=== PATIENT | male | born 1955 | race Asian ===

== ENCOUNTER 2018-04-13 21:50 | Emergency (ER) | payer OTHER ==
--- NOTE | 2018-04-13 21:53 | PDOC ---
Rapid Medical Evaluation Time Seen by Provider: 04/13/18 21:52 Medical Evaluation: Allergies Allergy/AdvReac Type Severity Reaction Status Date / Time No Known Allergies Allergy Verified 03/16/14 12:31 04/13/18 21:52 I have performed a brief in-person evaluation of this patient. The patient presents with a chief complaint of: fever, chills, dysuria s/p catheter placement Pertinent physical exam findings: abd SNTND I have ordered the following: urine The patient will proceed to the ED for further evaluation. Discharge Disposition - Diagnosis Dysuria - Referrals Referrals: Paty Yepez MD [Primary Care Provider] - - Patient Instructions - Post Discharge Activity
[2018-04-13 22:07] VITALS: BP 151/88; PULSE 110; BMI 26.3
[2018-04-13 22:20] LABS: URINE APPEARANCE SLCLOUDY; URINE BILIRUBIN NEGATIVE (<2.0 mg/dL); URINE COLOR STRAW; URINE GLUCOSE (UA) NEGATIVE (NEGATIVE); URINE KETONE NEGATIVE (NEGATIVE); URINE NITRITE NEGATIVE (NEGATIVE); URINE PROTEIN NEGATIVE (NEGATIVE); URINE UROBILINOGEN NEGATIVE mg/dL (0.2-1.0)
[2018-04-13 22:24] LABS: URINE LEUK ESTERASE 1+ (NEGATIVE)
[2018-04-13 22:27] LABS: URINE MUCUS RARE
--- NOTE | 2018-04-13 22:45 | PDOC ---
History of Present Illness - General Chief Complaint: Urinary Problem Stated Complaint: URINARY PROBLEM,FEVER Time Seen by Provider: 04/13/18 21:52 History Source: Patient Exam Limitations: No Limitations - History of Present Illness Initial Comments: This is a 62 YOM with h/o recent cystoscopy (6 days ago), BPH, renal stones, hernia repair, HTN, HLD, and lower GI bleed (2013) who p/w dysuria, urinary retention, subjective fever, chills, headache, and head-to-toe body aches worsening for the past three days. He describes the dysuria as burning urethra and sharp pain just above the pubic bone, both only present when he urinates, and he feels that he is unable to completely empty his bladder which is a new symptom for him. He additionally notes mild generalized headache for which he has taken Tylenol three times with short-lived relief. He has never had a UTI before. He denies any strange colors or smells to the urine, any blood or clots in the urine, any neck pain, dizziness, lightheadedness, chest pain, shortness of breath, additional abdominal pain, or any other symptoms lately. He has a prostate procedure scheduled for tomorrow. Past History - Past Medical History Allergies/Adverse Reactions: Allergies Allergy/AdvReac Type Severity Reaction Status Date / Time No Known Allergies Allergy Verified 03/16/14 12:31 Home Medications: Ambulatory Orders Atorvastatin Ca [Lipitor] 10 mg PO HS 03/16/14 Lisinopril [Prinivil] 10 mg PO DAILY 03/16/14 Metoprolol Tartrate [Lopressor -] 50 mg PO DAILY 03/16/14 Levofloxacin [Levaquin] 750 mg PO DAILY #4 tablet 04/14/18 COPD: No HTN: Yes Hypercholesterolemia: Yes Kidney Stones: Yes (H/O) Other medical history: enlarged prostate - Surgical History Abdominal Surgery: Yes (HERNIA REPAIR) - Suicide/Smoking/Psychosocial Hx Smoking History: Never smoked Review of Systems - Review of Systems Able to Perform ROS?: Yes Constitutional: Yes: Chills, Fever. No: Unexplained wgt Loss HEENTM: No: Nose Congestion, Throat Pain Respiratory: No: Cough, Shortness of Breath Cardiac (ROS): No: Chest Pain, Palpitations ABD/GI: No: Constipated, Diarrhea, Nausea, Vomiting : Yes: Burning, Dysuria, Other (retention) Musculoskeletal: No: Back Pain, Neck Pain Integumentary: No: Bruising, Rash Neurological: No: Headache, Numbness, Tingling, Weakness, Dizziness Endocrine: No: Unexplained Weight Gain, Unexplained Weight Loss *Physical Exam - Vital Signs Last Vital Signs Temp Pulse Resp BP Pulse Ox 99.6 F 110 H 18 151/88 99 04/13/18 22:04 04/13/18 22:04 04/13/18 22:04 04/13/18 22:04 04/13/18 22:04 - Physical Exam General Appearance: Yes: Nourished, Appropriately Dressed, Other (nontoxic and well appearing adult male, answering questions appropriately, accompanied by at bedside). No: Apparent Distress HEENT: positive: EOMI, EMMANUEL, Normal Voice, Hearing Grossly Normal. negative: Scleral Icterus (R), Scleral Icterus (L), Nasal Congestion Neck: positive: Trachea midline, Supple. negative: Tender, Rigid Respiratory/Chest: positive: Lungs Clear, Normal Breath Sounds. negative: Respiratory Distress, Crackles, Rhonchi, Stridor, Wheezing Cardiovascular: positive: Regular Rhythm, S1, S2, Tachycardia. negative: Edema , JVD, Murmur Gastrointestinal/Abdominal: positive: Normal Bowel Sounds, Flat, Soft. negative : Tender, Organomegaly, Pulsatile Mass, Protuberent, Distended, Guarding Male Genitalia: positive: normal genitalia. negative: discharge Musculoskeletal: positive: Normal Inspection. negative: Decreased Range of Motion, Vertebral Tenderness Extremity: positive: Normal Capillary Refill, Normal Inspection, Normal Range of Motion. negative: Tender, Cyanosis Integumentary: positive: Normal Color, Dry, Warm. negative: Erythema, Rash, Bruising Neurologic: positive: fryer operator II-XII NML intact (grossly), Fully Oriented, Alert, Normal Mood/Affect, Normal Response, Motor Strength /5 ED Treatment Course - LABORATORY CBC & Chemistry Diagram: 04/13/18 23:45 04/13/18 23:45 - ADDITIONAL ORDERS Additional order review: Laboratory Results 04/13/18 22:12 Urine Color Straw Urine Appearance Slcloudy Urine pH 6.0 Ur Specific [place] 1.003 Urine Protein Negative Urine Glucose (UA) Negative Urine Ketones Negative Urine Blood 1+ H Urine Nitrite Negative Urine Bilirubin Negative Urine Urobilinogen Negative Ur Leukocyte Esterase 1+ H Urine WBC (Auto) 18 Urine RBC (Auto) <1 Urine Mucus Rare Medical Decision Making - Medical Decision Making Adult male patient p/w burning on urination, urinary retention, headache, head- to-toe body aches, and subjective fever. Recent cystoscopy 6 days ago, known BPH with procedure scheduled tomorrow. Initial Vital Signs Temp Pulse Resp BP Pulse Ox 99.6 F 110 H 18 151/88 99 04/13/18 22:04 04/13/18 22:04 04/13/18 22:04 04/13/18 22:04 04/13/18 22:04 Exam: well appearing, nontoxic, not warm to the touch, heart and lung exam normal, abdominal exam benign, no CVA tenderness, exam normal. DDX IBNLT: UTI/pyelonephritis, urethritis, prostatitis, epididymitis, orchitis, hernia, testicular torsion, cellulitis, [place] gangrene, abscess (scrotal, perirectal, folliculitis, etc), spermatocele/hydrocele/hematocele, referred pain (i.e. renal colic, appendicitis, etc), malignancy, contact dermatitis, musculoskeletal, etc. W/U ordered: UA UCx CBCD CMP Lactate BCx TX ordered: IVF Laboratory Tests 04/13/18 04/13/18 04/13/18 22:12 23:45 23:45 WBC 13.1 H D RBC 4.75 Hgb 14.1 Hct 42.3 MCV 89.0 MCH 29.8 MCHC 33.4 RDW 13.8 Plt Count 276 MPV 8.2 Neutrophils % 76.4 D Lymphocytes % 14.7 D Monocytes % 8.1 Eosinophils % 0.4 Basophils % 0.4 Sodium 138 Potassium 4.0 Chloride 102 Carbon Dioxide 28 Anion Gap 8 BUN 11 D Creatinine 1.0 D Creat Clearance w eGFR > 60 Random Glucose 133 H Lactic Acid Calcium 8.5 Total Bilirubin 0.4 D AST 15 ALT 24 Alkaline Phosphatase 78 Total Protein 6.8 Albumin 3.6 Urine Color Straw Urine Appearance Slcloudy Urine pH 6.0 Ur Specific [place] 1.003 Urine Protein Negative Urine Glucose (UA) Negative Urine Ketones Negative Urine Blood 1+ H Urine Nitrite Negative Urine Bilirubin Negative Urine Urobilinogen Negative Ur Leukocyte Esterase 1+ H Urine WBC (Auto) 18 Urine RBC (Auto) <1 Urine Mucus Rare 04/13/18 23:45 WBC RBC Hgb Hct MCV MCH MCHC RDW Plt Count MPV Neutrophils % Lymphocytes % Monocytes % Eosinophils % Basophils % Sodium Potassium Chloride Carbon Dioxide Anion Gap BUN Creatinine Creat Clearance w eGFR Random Glucose Lactic Acid 2.0 Calcium Total Bilirubin AST ALT Alkaline Phosphatase Total Protein Albumin Urine Color Urine Appearance Urine pH Ur Specific [place] Urine Protein Urine Glucose (UA) Urine Ketones Urine Blood Urine Nitrite Urine Bilirubin Urine Urobilinogen Ur Leukocyte Esterase Urine WBC (Auto) Urine RBC (Auto) Urine Mucus On reassessment: Patient states feels well, ready to go home, exam benign. Repeat VS: Patient given Levaquin for UTI here in the ED. Workup is not concerning for emergency-level pathology at this time. The patient is appropriate for discharge with close outpatient follow up. E-Rx sent for additional Levaquin to patient's pharmacy. They are comfortable with this plan and will follow up with their PCP in 1-3 days. Return precautions are discussed and they will come back to the ER if necessary. *DC/Admit/Observation/Transfer Diagnosis at time of Disposition: BPH (benign prostatic hyperplasia) Qualifiers: Lower urinary tract symptom presence: symptoms present Lower urinary tract symptom detail: unspecified Qualified Code(s): N40.1 - Benign prostatic hyperplasia with lower urinary tract symptoms UTI (urinary tract infection) Qualifiers: Urinary tract infection type: acute cystitis Hematuria presence: with hematuria Qualified Code(s): N30.01 - Acute cystitis with hematuria Headache Qualifiers: Headache type: unspecified Headache chronicity pattern: acute headache Intractability: not intractable Qualified Code(s): R51 - Headache - Discharge Dispostion Disposition: HOME Condition at time of disposition: Stable Decision to Admit order: No - Prescriptions Prescriptions: Levofloxacin [Levaquin] 750 mg PO DAILY #4 tablet - Referrals Referrals: Paty Yepez MD [Primary Care Provider] - - Patient Instructions Printed Discharge Instructions: DI for Urinary Tract Infection (UTI) Additional Instructions: You were seen in the ER for painful urination. We did blood and urine labs blood tests and you have a urinary tract infection, but there were no other abnormalities. We gave you the first dose of antibiotic here. After our assessment, we do not believe you are having a medical emergency at this time, and we believe you are safe to go home. 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 Please take over the counter pain medications for pain, following the instructions on the medication label. For painful urination, please take pyridium (Azo) which you can get [id number] at the pharmacy. This will turn your urine orange and it is nothing to worry about while you are taking this medication. Follow up with your urologist and your primary doctor in 1-3 days. Call their clinic [facility] , tell them you were seen in the ER, and tell them you need an appointment. Please come back to the ER at any time, 24 hours a day, for any new or worsening symptoms, like worsened pain, increased or foul-smelling discharge, fever, testicular/scrotal pain or swelling, or other symptoms. If you are having severe or life threatening symptoms, or symptoms that make it unsafe to drive or have someone drive you, please call 911. - Post Discharge Activity
--- NOTE | 2018-04-13 23:17 | PDOC ---
Attending Attestation - Resident Resident Name: Letha Pena - ED Attending Attestation I have performed the following: I have examined & evaluated the patient, The case was reviewed & discussed with the resident, I agree w/resident's findings & plan, Exceptions are as noted - HPI HPI: 04/13/18 23:16 62y M hx of htn, HL, BPH s/p cystoscopy 6 days ago, presenst with subjective fever x 3 days and dysuria and hesitancy x 1 day. Pt denies any associated cough , uri like symptoms, cp, sob, abd pain, n/v, diarrhea/melena. The patient notes he was given 2 green capsules of abx after his cystoscopy he is not sure of the medication (?possibly keflex). GENERAL: The patient is awake, alert, and fully oriented, Nontoxic - in no acute distress. HEAD: Normocephalic, atraumatic. EYES: extraocular movements intact, sclera anicteric, conjunctiva clear. ENT: Normal voice, Moist mucous membranes. NECK: Normal range of motion, supple LUNGS: Breath sounds equal, clear to auscultation bilaterally. No wheezes, no rhonchi, no rales. HEART: Slightly tachycardic, normal S1 and S2 without murmur, rub or gallop. ABDOMEN: Soft, nontender, No guarding, no rebound. No CVA tenderness EXTREMITIES: Normal range of motion, no edema. NEUROLOGICAL: No facial assymetry, Normal speech, moving all 4 extremities spontaneously and symmetrically PSYCH: Normal mood, normal affect. SKIN: Warm, Dry, normal turgor, The patient's UA suggestive of a UTI, due to the patient's complaint of fever will obtain blood work and blood cultures. fluids as the patient is slightly tachycardic will reassess - Physicial Exam PE: 04/17/18 18:30 see above - Medical Decision Making 04/14/18 01:22 The patient's labs were reviewed, noted for mild leukocytosis. Will give the patient Levaquin IV and discharge patient with Levaquin with follow-up with urology
[2018-04-13] MEDS ORDERED: SODIUM CHLORIDE 1,000 ML IV STA (23:22)
[2018-04-13 23:57] LABS: BASO % 0.4 % (0-2.0); EOS % 0.4 % (0-4.5); HEMATOCRIT 42.3 % (35.4-49); HEMOGLOBIN 14.1 GM/dL (11.7-16.9); LYMPH % 14.7 % (8-40); MCH 29.8 pg (25.7-33.7); MCHC 33.4 g/dl (32.0-35.9); MEAN PLT VOLUME 8.2 fl (7.5-11.1); MONO % 8.1 % (3.8-10.2); NEUT % 76.4 % (42.8-82.8); PLATELET COUNT 276 K/MM3 (134-434); RBC 4.75 M/mm3 (4.00-5.60); RDW 13.8 % (11.9-15.9); WHITE BLOOD COUNT 13.1 K/mm3 (4.0-10.0)
[2018-04-14 00:10] VITALS: TEMP 99.7
[2018-04-14 00:16] LABS: ALBUMIN 3.6 g/dl (3.4-5.0); ALK PHOS 78 U/L (45-117); ANION GAP 8 (8-16); BILIRUBIN,TOTAL 0.4 mg/dL (0.2-1.0); BLOOD UREA NITROGEN 11 mg/dL (7-18); CALCIUM 8.5 mg/dL (8.5-10.1); CHLORIDE 102 mmol/L (98-107); CO2 28 mmol/L (21-32); GLUCOSE,RANDOM 133 mg/dL (74-106); SGOT/AST 15 U/L (15-37); SGPT/ALT 24 U/L (12-78); SODIUM 138 mmol/L (136-145); TOT PROT 6.8 g/dl (6.4-8.2)
[2018-04-14] MEDS ORDERED: levoFLOXacin 750 MG TABLET PO ONE (01:46)
== END 2018-04-14 01:56 | disposition home or self-care (01) ==
LOC: JER 21:50
DX: N30.01 Acute cystitis with hematuria (principal); N40.1 Benign prostatic hyperplasia with lower urinary tract symptoms; R33.8 Other retention of urine; R51 Headache; I10 Essential (primary) hypertension; E78.00 Pure hypercholesterolemia, unspecified; Z87.442 Personal history of urinary calculi; Z98.890 Other specified postprocedural states
CPT/HCPCS: 36415; 80053; 81003; 81015; 83605; 85025; 87040; 87086; 99282-25; J7030

== ENCOUNTER 2024-10-15 05:15 | Day surgery (SDC) | payer OTHER ==
[2024-10-12 16:29] VITALS: BMI 26.6
[2024-10-15] MEDS ORDERED: CEFAZOLIN 2 GM/D5W 2 GM/50 ML ML IVPB ONE (11:00)
[2024-10-15] MEDS ORDERED: PROPOFOL 20 ML ONE (11:21)
[2024-10-15] MEDS ORDERED: ROCURONIUM BROMIDE 50 MG/5 ML SYRINGE ONE (11:21)
[2024-10-15] MEDS ORDERED: MIDAZOLAM HCL 2 MG/2 ML SINGLE DOSE VIAL ONE (11:21)
[2024-10-15] MEDS ORDERED: LIDOCAINE HCL/PF 2% SDV 5ML VIAL ONE (11:21)
[2024-10-15] MEDS: ceFAZolin SODIUM 1 GM VIAL IVPB ONE (12:01)
[2024-10-15] MEDS: BUPIVACAINE HCL/PF 0.5% (5MG/ML) 10 ML VIAL NR ONE ×2 (12:07)
[2024-10-15] MEDS ORDERED: LACTATED RINGERS SOLUTION 1,000 ML IV SCH (13:30)
[2024-10-15] MEDS: ONDANSETRON 4 MG/2 ML VIAL IVPUSH PRN (16:47)
[2024-10-15] MEDS ORDERED: ONDANSETRON 4 MG/2 ML VIAL ONE (16:48)
[2024-10-15 17:06] VITALS: RESP 20; TEMP 97.1
[2024-10-15] MEDS: oxyCODONE HCL 5 MG TABLET PO PRN (17:49)
[2024-10-15] MEDS ORDERED: oxyCODONE HCL 5 MG TABLET ONE (17:50)
[2024-10-15 20:07] VITALS: BP 115/65; PULSE 62
== END 2024-10-15 19:06 | disposition home or self-care (01) ==
LOC: JASU-SURG 05:15
PROVIDERS: ATTEND Surgery
PROC: 0FT44ZZ Resection of Gallbladder, Percutaneous Endoscopic Approach (ICD-10-PCS; principal; 2024-10-15 11:30)
DX: K82.4 Cholesterolosis of gallbladder (principal)
CPT/HCPCS: 88304-TC; 94760; J0131

== ENCOUNTER 2025-04-19 08:40 | Day surgery (SDC) | payer OTHER ==
[2025-04-15 10:09] VITALS: BMI 22.5
[2025-04-19 11:04] VITALS: TEMP 97.8
[2025-04-19 11:36] VITALS: BP 107/62; PULSE 69; RESP 14
== END 2025-04-19 11:53 | disposition home or self-care (01) ==
LOC: JASU-ENDO 08:40
PROVIDERS: ATTEND Internal Medicine Gastroenterology
PROC: 0DBL8ZX Excision of Transverse Colon, Via Natural or Artificial Opening Endoscopic, Diagnostic (ICD-10-PCS; 2025-04-19)
PROC: 0DBP8ZX Excision of Rectum, Via Natural or Artificial Opening Endoscopic, Diagnostic (ICD-10-PCS; 2025-04-19)
PROC: 0DBK8ZX Excision of Ascending Colon, Via Natural or Artificial Opening Endoscopic, Diagnostic (ICD-10-PCS; principal; 2025-04-19 10:00)
DX: Z12.11 Encounter for screening for malignant neoplasm of colon (principal); D12.2 Benign neoplasm of ascending colon; D12.3 Benign neoplasm of transverse colon; D12.8 Benign neoplasm of rectum; D12.9 Benign neoplasm of anus and anal canal; K57.30 Diverticulosis of large intestine without perforation or abscess without bleeding; K64.8 Other hemorrhoids; A63.0 Anogenital (venereal) warts
CPT/HCPCS: 88305-TC; 88341-TC; 88342-TC